=== PATIENT | male | born 1990 | race African-American/Black ===

== ENCOUNTER 2019-10-21 16:50 | Emergency (ER) | payer OTHER ==
[2019-10-21] MEDS ORDERED: ceFAZolin 1 GM in Premix Bag 1 BAG IV ONE (16:56)
[2019-10-21] MEDS ORDERED: Diphtheria,Pertussis(Acell),Tetanus Vaccine 0.5 ML Syringe IM ONE (16:58)
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
[2019-10-21] MEDS ORDERED: Lidocaine 1% 10 ML MDV INJECT ONE (17:35)
[2019-10-21] MEDS ORDERED: Ketorolac 30 MG/ML SDV IVPUSH SCH (19:00)
[2019-10-21] MEDS ORDERED: Lidocaine 1% 50 ML MDV ONE (19:02)
--- NOTE | 2019-10-24 09:17 | CR ---
Left forearm: Two views of the left forearm were obtained. Comparison: No prior forearm study. Foreign body is identified within the soft tissues of the mid to distal humerus mostly along the posterior and radial side of the forearm. This foreign body measures approximately 7 mm. Soft tissue swelling is noted. No acute fracture or other bony abnormality is identified. Impression: 1. Soft tissue foreign body. 2. Soft tissue swelling. 3. No acute bony abnormality is identified. Diagnostic code #3 This report was dictated in [place] Standard Time
--- NOTE | 2019-10-24 09:17 | CR ---
Left forearm: Two fluoroscopic spot views were obtained of the mid left forearm. Comparison: Prior CT forearm study performed earlier on the same day (6:01 PM) Findings: Study shows a forcep at the level of the previously noted foreign body. Last fluoroscopic view shows removal of this foreign body. Soft tissue swelling is noted. No underlying bony abnormality is identified. Impression: 1. Procedural study as described above. Diagnostic code #2 This report was dictated in [place] Standard Time
--- NOTE | 2019-10-24 09:17 | CR ---
Left hand: Four views of the left hand were obtained. Comparison: No previous study. Numerous superficial soft tissue opacities are seen. No acute fracture, dislocation or other bony abnormality is identified. Impression: 1. Multiple superficial soft tissue opacities. These are likely outside the patient. 2. No acute bony abnormality is identified on left hand exam. Diagnostic code #2 This report was dictated in [place] Standard Time
--- NOTE | 2019-10-24 09:17 | CR ---
Left shoulder: Three views of the left shoulder were obtained. Comparison: No prior shoulder study. Glenohumeral joint appears within normal limits. Acromioclavicular joint appears within normal limits. No acute fracture, dislocation or other bony abnormality is identified. Scoliosis is present within the spine. Impression: 1. Scoliosis. 2. Nothing acute is appreciated on left shoulder study. Diagnostic code #2 This report was dictated in [place] Standard Time
--- NOTE | 2019-10-24 13:17 | CT ---
Left wrist: Multiple axial sections through the left wrist were obtained. Reconstructed coronal and sagittal images were reviewed. Comparison: Previous left hand exam showing the wrist dated 10/21/19 at 4:53 PM) . Findings: Joint spaces within the wrist are preserved. No fracture or other bony abnormality is seen. Opaque foreign body is projected within the soft tissues measuring about 9 mm in greatest dimension. This is located along the radial side of the posterior forearm. Impression: 1. Foreign body as described above. 2. No acute bony abnormality is identified on left wrist exam. Diagnostic code #3 This report was dictated in [place] Standard Time MTDD
== END 2019-10-21 20:48 | disposition home or self-care (01) ==
LOC: JD.ED 16:50
DX: S57.82XA Crushing injury of left forearm, initial encounter (principal); S51.842A Puncture wound with foreign body of left forearm, initial encounter; S50.312A Abrasion of left elbow, initial encounter; Z23 Encounter for immunization; V68.5XXA Driver of heavy transport vehicle injured in noncollision transport accident in traffic accident, initial encounter; Y92.411 Interstate highway as the place of occurrence of the external cause
CPT/HCPCS: 10120; 36415; 73030; 73090; 73130; 73200; 76000; 80053; 82550; 85025; 90471; 90715; 96365; 99284; J0690; J2001; 99283; G0008